=== PATIENT | male | born 1970 | race Caucasian/White ===

== ENCOUNTER 2016-04-11 21:19 | Emergency (ER) | payer OTHER ==
[2016-04-11 21:48] VITALS: BP 119/70; PULSE 79; RESP 18; TEMP 98.2
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
== END 2016-04-11 22:57 | disposition home or self-care (01) ==
LOC: EC 21:19
DX: M54.2 Cervicalgia (principal); F17.200 Nicotine dependence, unspecified, uncomplicated; V43.92XA Unspecified car occupant injured in collision with other type car in traffic accident, initial encounter; Y92.411 Interstate highway as the place of occurrence of the external cause
CPT/HCPCS: 72050; 99283

== ENCOUNTER → 2016-04-26 | Outpatient (CLI) | payer OTHER ==
--- NOTE | 2016-04-26 08:40 | MR ---
MRI CERVICAL SPINE: CLINICAL HISTORY: Neck pain per order. Headache with neck pain for 2 months per patient. TECHNIQUE: Multiplanar, multisequence imaging of the cervical spine is performed without IV contrast. . COMPARISON: Cervical spine x-ray April 11, 2016 FINDINGS: Sagittal images of the cervical spine show the craniocervical junction to appear within nor mal limits. The cervical and upper thoracic spinal cord is normal in course, caliber, and signal. V ertebral alignment is anatomic. The vertebral body and intravertebral disk heights are normal. No la rge posterior disc herniations are seen on sagittal images. The bone marrow signal intensity is withi n normal limits. No significant spurring is noted. Axial images show the C2-C3 level to appear within normal limits. Axial images at C3-C4 level show some uncovertebral facet degenerative changes and marginal spurring bilaterally causing mild to moderate bilateral neural foraminal narrowing near axial image 49. Spinal canal is preserved. Axial images at C4-C5 level show some uncovertebral facet degenerative changes bilaterally causing mi ld left-sided neural foraminal narrowing. Right-sided neural foramen is patent. Axial images at C5-C6, C6-C7, and C7-T1 levels are all felt within normal limits. IMPRESSION: Some uncovertebral facet arthropathy and marginal spurring contributes to neural foramina l narrowing at bilateral C3-C4 and left C4-C5 level.
== END | disposition home or self-care (01) ==
LOC: RADMRIMAIN 07:28
PROVIDERS: ATTEND Family Medicine
DX: M99.71 Connective tissue and disc stenosis of intervertebral foramina of cervical region (principal); M46.82 Other specified inflammatory spondylopathies, cervical region
CPT/HCPCS: 72141

== ENCOUNTER 2018-11-30 00:12 | Emergency (ER) | payer BC ==
[2018-11-30 00:17] VITALS: BP 119/77; PULSE 75; TEMP 97.8
[2018-11-30] MEDS ORDERED: predniSONE 50 MG TAB PO STA (00:42)
[2018-11-30] MEDS ORDERED: guaiFENesin-DM 600/30MG 1 EACH TAB.ER.12H PO STA (00:42)
--- NOTE | 2018-11-30 00:54 | ED ---
URI HPI - General Chief Complaint: Upper Respiratory Infection Stated Complaint: respiratory issues Time Seen by Provider: 11/30/18 00:23 Source: patient Mode of arrival: ambulatory Limitations: no limitations - History of Present Illness Initial Comments: 48-year-old male patient presents to the emergency department today for evaluation of sore throat, cough, nasal congestion. Patient states his had symptoms for the last 10 days. Patient states initially he did have fevers which have resolved. States that his nasal congestion seems to be worsening despite use of DayQuil and NyQuil. He denies any shortness of breath or hemoptysis. Denies any pain to the chest. Patient denies any recent rash, abdominal pain, nausea, vomiting, diarrhea, constipation, back pain, numbness, tingling, dizziness, weakness, hematuria, dysuria, urinary urgency, urinary frequency, headache, visual changes, or any other complaints. - Related Data Previous Rx's Medication Instructions Recorded Azithromycin [Zithromax Z-pack] 0 mg PO DIRECTED #6 tab 11/30/18 guaiFENesin-DM 600/30MG [Mucinex 1 each PO Q12HR #10 tab.er.12h 11/30/18 Dm] predniSONE 50 mg PO DAILY #5 tablet 11/30/18 Allergies Allergy/AdvReac Type Severity Reaction Status Date / Time No Known Allergies Allergy Verified 11/30/18 00:17 Review of Systems ROS Statement: Those systems with pertinent positive or pertinent negative responses have been documented in the HPI. ROS Other: All systems not noted in ROS Statement are negative. Past Medical History Past Medical History: No Reported History History of Any Multi-Drug Resistant Organisms: None Reported Past Surgical History: No Surgical Hx Reported Past Psychological History: No Psychological Hx Reported Smoking Status: Current every day smoker Past Alcohol Use History: None Reported Past Drug Use History: None Reported General Exam Limitations: no limitations General appearance: alert, in no apparent distress, other (This is a well- developed, well-nourished adult male patient in no acute distress. Vital signs upon presentation are temperature 97.8F, pulse 75, respirations 20, blood pressure 119/77, pulse ox 97% on room air.) Respiratory exam: Present: normal lung sounds bilaterally. Absent: respiratory distress, wheezes, rales, rhonchi, stridor Cardiovascular Exam: Present: regular rate, normal rhythm, normal heart sounds. Absent: systolic murmur, diastolic murmur, rubs, gallop, clicks Neurological exam: Present: alert, oriented X3, CN II-XII intact Psychiatric exam: Present: normal affect, normal mood Skin exam: Present: warm, dry, intact, normal color. Absent: rash Course Vital Signs 11/30/18 00:15 Temperature 97.8 F Pulse Rate 75 Respiratory 20 Rate Blood Pressure 119/77 O2 Sat by Pulse 97 Oximetry Disposition Clinical Impression: Sinusitis, Bronchitis Disposition: HOME SELF-CARE Condition: Good Instructions (If sedation given, give patient instructions): Sinusitis (ED), Acute Bronchitis (ED) Additional Instructions: Complete medications as directed. Follow up with a primary care physician for recheck in 1-2 days. Return to the emergency department for any new, worsening, or concerning symptoms. Prescriptions: guaiFENesin-DM 600/30MG [Mucinex Dm] 1 each PO Q12HR #10 tab.er.12h predniSONE 50 mg PO DAILY #5 tablet Azithromycin [Zithromax Z-pack] 0 mg PO DIRECTED #6 tab Is patient prescribed a controlled substance at d/c from ED?: No Referrals: Luke Suggs MD [STAFF PHYSICIAN] - 1-2 days Time of Disposition: 01:13
--- NOTE | 2018-11-30 00:58 | XR ---
EXAMINATION TYPE: XR chest 2V DATE OF EXAM: 11/30/2018 COMPARISON: NONE HISTORY: Cough TECHNIQUE: Frontal and lateral views of the chest are obtained. FINDINGS: Heart and mediastinum are normal. Lungs are clear. Diaphragm is normal. Bony thorax appear s normal. IMPRESSION: Normal chest.
[2018-11-30 01:25] VITALS: RESP 18
== END 2018-11-30 01:22 | disposition home or self-care (01) ==
LOC: EC 00:12
DX: J40 Bronchitis, not specified as acute or chronic (principal); J32.9 Chronic sinusitis, unspecified; F17.200 Nicotine dependence, unspecified, uncomplicated
CPT/HCPCS: 71046; 99283

== ENCOUNTER 2018-12-07 16:17 | Emergency (ER) | payer BC ==
[2018-12-07 16:25] VITALS: BP 127/75; PULSE 77; RESP 16; TEMP 97.6
--- NOTE | 2018-12-07 18:43 | ED ---
Nausea/Vomiting/Diarrhea HPI - General Source: patient Mode of arrival: ambulatory Limitations: no limitations <Basia Jose - Last Filed: 12/07/18 20:35> <Claudia Rodriguez - Last Filed: 12/11/18 15:51> - General Chief complaint: Nausea/Vomiting/Diarrhea Stated complaint: Diarrhea Time Seen by Provider: 12/07/18 17:40 - History of Present Illness Initial comments: Patient is a 48-year-old male presenting to the emergency Department with complaints of diarrhea 5 days. Patient was previously in the ER 1 week ago for bronchitis and was given steroids and azithromycin for his symptoms. Patient states his diarrhea has decreased. Patient was afraid he might need more antibiotics secondary to a lot of germs at his work. Patient finished his Z-Ambrosio 2 days ago. Patient denies any abdominal pain, fevers, chills, nausea, vomiting. Patient states he is having 2-3 bowel movements a day. Patient states his bronchitis has cleared and he is feeling much better. Patient has no other complaints at this time. Upon arrival to ER, vital signs are stable. (Basia Jose) - Related Data Previous Rx's Medication Instructions Recorded Azithromycin [Zithromax Z-pack] 0 mg PO DIRECTED #6 tab 11/30/18 guaiFENesin-DM 600/30MG [Mucinex 1 each PO Q12HR #10 tab.er.12h 11/30/18 Dm] predniSONE 50 mg PO DAILY #5 tablet 11/30/18 Allergies Allergy/AdvReac Type Severity Reaction Status Date / Time No Known Allergies Allergy Verified 12/07/18 16:25 Review of Systems ROS Other: All systems not noted in ROS Statement are negative. <Basia Jose - Last Filed: 12/07/18 20:35> ROS Other: All systems not noted in ROS Statement are negative. <Claudia Rodriguez - Last Filed: 12/11/18 15:51> ROS Statement: Those systems with pertinent positive or pertinent negative responses have been documented in the HPI. Past Medical History Past Medical History: No Reported History History of Any Multi-Drug Resistant Organisms: None Reported Past Surgical History: No Surgical Hx Reported Past Psychological History: No Psychological Hx Reported Smoking Status: Current every day smoker Past Alcohol Use History: None Reported Past Drug Use History: None Reported <Basia Jose - Last Filed: 12/07/18 20:35> General Exam Limitations: no limitations <Basia Jose - Last Filed: 12/07/18 20:35> - General Exam Comments Initial Comments: GENERAL: Well-appearing, well-nourished and in no acute distress. HEAD: Atraumatic, normocephalic. EYES: Pupils equal round and reactive to light, extraocular movements intact, sclera anicteric, conjunctiva are normal. ENT: TMs normal, nares patent, oropharynx clear without exudates. Moist mucous membranes. NECK: Normal range of motion, supple without lymphadenopathy or JVD. LUNGS: Breath sounds clear to auscultation bilaterally and equal. No wheezes rales or rhonchi. HEART: Regular rate and rhythm without murmurs, rubs or gallops. ABDOMEN: Soft, nontender, normoactive bowel sounds. No guarding, no rebound. No masses appreciated. : Deferred EXTREMITIES: Normal range of motion, no pitting or edema. No clubbing or cyanosis. NEUROLOGICAL: Cranial nerves II through XII grossly intact. Normal speech, normal gait. PSYCH: Normal mood, normal affect. SKIN: Warm, Dry, normal turgor, no rashes or lesions noted. (RebecaBasia L) Course Vital Signs 12/07/18 16:22 Temperature 97.6 F Pulse Rate 77 Respiratory 16 Rate Blood Pressure 127/75 O2 Sat by Pulse 96 Oximetry Medical Decision Making <Basia Jose Sukumar - Last Filed: 12/07/18 20:35> <Claudia Rodriguez - Last Filed: 12/11/18 15:51> - Medical Decision Making Patient is a 48-year-old male presenting with diarrhea x one week. Patient recently treated for bronchitis with a Z-Ambrosio and steroids. Patient states his bronchitis has cleared and is feeling much better. Patient is having 2-3 bowel movements a day. Patient states he has been taking Imodium for the past day. Patient was concerned he needs more antibiotics. Patient's exam is normal today. Patient denies fever, chills, abdominal pain, nausea, vomiting. Patient was offered to do a stool sample to test for C. diff however the patient declined this time, he did not want to wait for results. Patient was given sample, to take home with him. It was discussed with patient that he does not need more antibiotics as his antibiotics will continue to work in his system for another 5 days. Patient will follow up with his PCP on Monday. Patient is in agreement with this plan of care. Patient is stable for discharge at this time. Return parameters were discussed with the patient and he verbalized understanding. Case discussed with Dr. Rodriguez. (Basia Jose) I was available for consultation in the emergency department. The history and p hysical exam were done by the midlevel provider. I was consulted for this patients care. I reviewed the case with the midlevel provider and based on their presentation of the patient, I agree with the assessment, medical decision making and plan of care as documented. Chart was dictated using [employer] dictation software. Attempts were made to correct any dictation errors however some typographical errors may persist. (Claudia Rodriguez) Disposition Is patient prescribed a controlled substance at d/c from ED?: No <Basia Jose - Last Filed: 12/07/18 20:35> <Claudia Rodriguez - Last Filed: 12/11/18 15:51> Clinical Impression: Diarrhea Disposition: HOME SELF-CARE Condition: Stable Instructions (If sedation given, give patient instructions): Acute Diarrhea (ED) Additional Instructions: Please return to the Emergency Department if symptoms worsen or any other concerns. Continue with Imodium as needed. Increase fluid intake. Increase fiber intake as well. Referrals: None,Stated [Primary Care Provider] - 1-2 days
== END 2018-12-07 19:18 | disposition home or self-care (01) ==
LOC: EC 16:17
DX: R19.7 Diarrhea, unspecified (principal); F17.200 Nicotine dependence, unspecified, uncomplicated
CPT/HCPCS: 99283